=== PATIENT | female | born 1985 | race Caucasian/White ===

== ENCOUNTER 2019-02-17 15:35 | Inpatient (IN) | payer OTHER ==
--- NOTE | 2019-02-17 20:26 | CONSULT ---
Past Medical History, Laborist - Admission Chief Complaint: Contractions, poss. early labor, History of Present Illness: Term gestation; 39 w 1d. CELSO - 02.23.2019. GBS - neg. Wlking. FH reactive. Some ctx. Was 3 cm. in the office yesterday. 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 Weeks Gestation by Dates: 39.3 ...EDC by Dates: 02/21/19 ...EDC by Sono: 02/23/19 Heme/Onc: Denies/None Infectious Disease: Denies/None Psych: Denies/None Musculoskeletal: Denies/None Rheumatology: Denies/None ENT: Denies/None Endocrine: Denies/None Dermatology: Denies/None - Past Surgical History Past Surgical History: Yes: None Review of Systems - Review of Systems Constitutional: reports: No Symptoms Eyes: reports: No Symptoms HENT: reports: No Symptoms Neck: reports: No Symptoms Cardiovascular: reports: No Symptoms Respiratory: reports: No Symptoms Gastrointestinal: reports: No Symptoms Genitourinary: reports: No Symptoms Breasts: reports: No Symptoms Reported Musculoskeletal: reports: No Symptoms Integumentary: reports: No Symptoms Neurological: reports: No Symptoms Endocrine: reports: No Symptoms Hematology/Lymphatic: reports: No Symptoms Psychiatric: reports: No Symptoms Physical Exam - Maternity Vital Signs: Vital Signs Temperature 97.7 F 02/17/19 16:25 Pulse Rate 84 02/17/19 16:25 Respiratory Rate 20 02/17/19 16:25 Blood Pressure 116/75 02/17/19 16:25 O2 Sat by Pulse Oximetry (%) Constitutional: Yes: Well Nourished, No Distress, Calm Eyes: Yes: WNL, Conjunctiva Clear, EOM Intact HENT: Yes: WNL, Atraumatic, Normocephalic Neck: Yes: WNL, Supple, Trachea Midline Cardiovascular: Yes: WNL, Regular Rate and Rhythm Breast(s): Yes: WNL - Abdominal Exam/OB Fundal Height: 38 (short stature) Number of Fetuses: Single Presentation: Vertex Contractions: Yes Regularity: Irregular Intensity: Mild Monitor Mode: External Heart Rate (range): 136 Heart Rate Location: [facility] Category: I Accelerations: Uniform Decelerations: None - Vaginal Exam/OB Vaginal Bleediing: No Speculum Exam: No Dilatation (cm): 3 Effacement (%): 50 Amniotic Membrane Status: Intact Presentation: Vertex/Position Station: -1 - Physical Exam Musculoskeletal: Yes: WNL Extremities: Yes: WNL Integumentary: Yes: WNL ...Motor Strength: WNL Psychiatric: Yes: WNL Problem List - Problems (1) with 39 completed weeks gestation Code(s): Z3A.39 - 39 WEEKS GESTATION OF (2) Irregular uterine contractions Code(s): O62.2 - OTHER UTERINE INERTIA Assessment/Plan Term gestatuin, second baby. Early labor. No significant cervical changes. FH reactive. NST - reactive. Observe, allow labor to develop. Considering augmentation, poss. AROM. All discussed with pt. and her SO.
[2019-02-17 22:01] VITALS: BMI 24.7
[2019-02-17 23:02] LABS: BASO % 0.9 % (0-2.0); EOS % 0.7 % (0-4.5); HEMATOCRIT 34.2 % (32.4-45.2); HEMOGLOBIN 11.2 GM/dL (10.7-15.3); LYMPH % 20.5 % (8-40); MCH 30.1 pg (25.7-33.7); MCHC 32.8 g/dl (32.0-36.0); MEAN CELL VOLUME 91.7 fl (80-96); MEAN PLT VOLUME 8.6 fl (7.5-11.1); NEUT % 72.9 % (42.8-82.8); PLATELET COUNT 279 K/MM3 (134-434); RBC 3.73 M/mm3 (3.60-5.2); RDW 15.1 % (11.6-15.6); WHITE BLOOD COUNT 12.7 K/mm3 (4.0-10.0)
[2019-02-17 23:28] LABS: BLOOD UREA NITROGEN 10.9 mg/dL (7-18); CALCIUM 8.9 mg/dL (8.5-10.1); CREATININE 0.8 mg/dL (0.55-1.3); POTASSIUM 3.9 mmol/L (3.5-5.1)
[2019-02-17] MEDS ORDERED: OXYTOCIN 30 UNITS in 0.9% NS 30 UNIT/500 ML INFUS.BAG IVPB ONE (23:56)
[2019-02-18] MEDS ORDERED: OXYTOCIN 30 UNITS in 0.9% NS 30 UNIT/500 ML INFUS.BAG IVPB SCH
[2019-02-18 00:40] LABS: INR 0.92 (0.83-1.09); PROTHROMBIN TIME (PATIENT) 10.9 SEC (9.7-13.0)
[2019-02-18 00:43] LABS: ACTIVATED PTT 29.6 SECONDS (25.2-36.5)
[2019-02-18] MEDS: DEXTROSE 5%-LACTATED RINGERS 1,000 ML IV SCH ×2 (07:30)
--- NOTE | 2019-02-18 08:38 | PN ---
Progress Note (short form) - Note Progress Note: cx 5 cm 80 vx -2 mi fhr cat 1, arom clear irregular contraction on pitocin
[2019-02-18] MEDS ORDERED: ELECTROLYTE-148 SOLN 1,000 ML IV SCH (08:45)
--- NOTE | 2019-02-18 08:47 | HP ---
Past Medical History - Primary Care Physician PCP:: Lars Soni - Admission Chief Complaint: 39 weeks, labor History of Present Illness: 33 yo f oo1 39 weeks,in labor , [facility] at [facility] care , cx 5 cm 80 vx -2 mi, fhr cat 1, GBS negative History Source: Patient Limitations to Obtaining History: No Limitations - Past Medical History ...: 2 ...Para: 1 ...Term: 1 ...: 0 ...Spon : 0 ...Induced : 0 ...Multiple Gestation: 0 ...LMP: 05/17/18 ... Weeks Gestation by Dates: 39.3 ...EDC by Dates: 02/21/19 ...EDC by Sono: 02/23/19 Infectious Disease: Yes: STD's (txed for chlamydia06/2018) - Past Surgical History Past Surgical History: Yes: None Hx Myomectomy: No Hx Transabdominal Cerclage: No - Smoking History Smoking history: Never smoked Have you smoked in the past 12 months: No - Alcohol/Substance Use Hx Alcohol Use: No History of Substance Use: reports: None - Social History Usual Living Arrangement: Yes: With Spouse History of Recent Travel: No Home Medications - Allergies Allergies/Adverse Reactions: Allergies Allergy/AdvReac Type Severity Reaction Status Date / Time No Known Allergies Allergy Verified 02/17/19 16:16 - Home Medications Home Medications: Ambulatory Orders Ferrous Sulfate [Iron] 325 mg PO DAILY 02/17/19 Vitamins (Sjr) - 1 tab PO DAILY 02/17/19 Review of Systems - Review of Systems Constitutional: reports: No Symptoms Eyes: reports: No Symptoms HENT: reports: No Symptoms Neck: reports: No Symptoms Cardiovascular: reports: No Symptoms Gastrointestinal: reports: No Symptoms Genitourinary: reports: No Symptoms Breasts: reports: No Symptoms Reported Musculoskeletal: reports: No Symptoms Integumentary: reports: No Symptoms Neurological: reports: No Symptoms Endocrine: reports: No Symptoms Hematology/Lymphatic: reports: No Symptoms Psychiatric: reports: No Symptoms Physical Exam - Maternity Vital Signs: Vital Signs Temperature 98.4 F 02/18/19 06:00 Pulse Rate 90 02/18/19 08:00 Respiratory Rate 20 02/18/19 08:00 Blood Pressure 122/53 L 02/18/19 08:00 O2 Sat by Pulse Oximetry (%) Constitutional: Yes: Well Nourished, No Distress, Calm Eyes: Yes: WNL, Conjunctiva Clear, EOM Intact HENT: Yes: WNL, Atraumatic, Normocephalic Neck: Yes: WNL, Supple, Trachea Midline Cardiovascular: Yes: WNL, Regular Rate and Rhythm Breast(s): Yes: WNL - Abdominal Exam/OB Fundal Height: 38 Number of Fetuses: Single Presentation: Vertex Contractions: Yes Regularity: Irregular Intensity: Mod/Strong Monitor Mode: External Heart Rate Location: [facility] Category: I Accelerations: Non-Uniform Decelerations: None - Vaginal Exam/OB Vaginal Bleediing: No Speculum Exam: No Dilatation (cm): 5 cm Effacement (%): 80 Amniotic Membrane Status: Intact Presentation: Vertex/Position Station: -2 - Physical Exam Musculoskeletal: Yes: WNL Extremities: Yes: WNL Edema: Yes Edema: LLE: Trace, RLE: Trace Deep Tendon Reflex Grade: Normal +2 ...Motor Strength: WNL Psychiatric: Yes: WNL - Labs Lab Results: CBC, BMP 02/17/19 22:30 02/17/19 22:30 Hemorrhage Risk Assessment - Risk Factors Medium Risk Factors: Yes: None High Risk Factors: Yes: None Risk Score: 1 Risk Level: Medium Risk Problem List - Problems (1) with 39 completed weeks gestation Code(s): Z3A.39 - 39 WEEKS GESTATION OF (2) with 39 completed weeks gestation Code(s): Z3A.39 - 39 WEEKS GESTATION OF (3) Labor established Code(s): EMZ6027 - Assessment/Plan admiy in labor anticipate vaginal delivery FHM pain management
[2019-02-18] MEDS ORDERED: FENTANYL/BUPIVACAINE/NS/PF - PCEA - 50 ML DISP.SYRIN EP ONE (08:50)
[2019-02-18] MEDS ORDERED: NALOXONE HCL 0.4 MG/ML VIAL IVPUSH PRN (09:36)
[2019-02-18] MEDS ORDERED: FENTANYL/BUPIVACAINE/NS/PF - PCEA - 50 ML DISP.SYRIN EP SCH (09:45)
[2019-02-18] MEDS ORDERED: LIDOCAINE HCL 1% PRESERVATIVE FREE - 30ML VIAL ONE (09:53)
[2019-02-18] MEDS ORDERED: OXYTOCIN 20 UNITS in 0.9% NS 20 UNIT/1,000 ML INFUS.BAG IV ONE ×2 (09:53→11:44)
[2019-02-18] MEDS: D5W-LR W/ 20 UNITS OXYTOCIN 20 UNIT/1,000 ML INFUS.BAG IV SCH ×2 (10:07→12:00)
[2019-02-18] MEDS ORDERED: BENZOCAINE 28 GM HEMORRHOIDAL OINTMENT TP PRN (10:32)
[2019-02-18] MEDS ORDERED: WITCH HAZEL 50% (TUCKS) 40 PAD/JAR PAD TP PRN (10:32)
[2019-02-18] MEDS ORDERED: BENZOCAINE 20% 57 GM BOTTLE TP PRN (10:32)
[2019-02-18] MEDS ORDERED: METHYLERGONOVINE MALEATE 0.2 MG/1 ML AMP IM PRN (10:32)
[2019-02-18] MEDS ORDERED: BISACODYL 10 MG SUPP.RECT RC PRN (10:32)
[2019-02-18] MEDS ORDERED: METHYLERGONOVINE MALEATE 0.2 MG/1 ML AMP IM ONE (10:33)
[2019-02-18] MEDS: ACETAMINOPHEN 325 MG TABLET (FP) PO PRN ×2 (10:40→19:50)
[2019-02-18] MEDS: IBUPROFEN 600 MG TABLET (FP) PO PRN ×2 (10:40→19:51)
--- NOTE | 2019-02-18 11:05 | PN ---
Delivery - Delivery Vaginal Delivery: Spontaneous Type of Anesthesia: Local, Epidural Episiotomy/Laceration: 1st degree (cx full , head delivered . nasopharynx suction , ant. and post shoulder with no difficulty, live baby boy, 8/9 , placenta complete , ebl 400 cc , methergine given im 1 dose for uterine atony) Delivery, Single - [place] Feeding Plan Initial Plan: Elected not to breastfeed exclusively throughout hospitalization
[2019-02-18] MEDS: FERROUS SO4 325 MG TABLET (FP) PO SCH (21:59)
[2019-02-19] MEDS: ACETAMINOPHEN 325 MG TABLET (FP) PO PRN ×3 (00:38→17:32)
[2019-02-19] MEDS: IBUPROFEN 600 MG TABLET (FP) PO PRN ×3 (00:38→17:33)
[2019-02-19 08:06] LABS: BASO % 0.3 % (0-2.0); EOS % 0.6 % (0-4.5); HEMATOCRIT 28.2 % (32.4-45.2); HEMOGLOBIN 9.2 GM/dL (10.7-15.3); LYMPH % 17.7 % (8-40); MCH 30.2 pg (25.7-33.7); MCHC 32.7 g/dl (32.0-36.0); MEAN CELL VOLUME 92.3 fl (80-96); MEAN PLT VOLUME 8.4 fl (7.5-11.1); MONO % 6.5 % (3.8-10.2); NEUT % 74.9 % (42.8-82.8); PLATELET COUNT 225 K/MM3 (134-434); RBC 3.06 M/mm3 (3.60-5.2); RDW 15.2 % (11.6-15.6); WHITE BLOOD COUNT 13.1 K/mm3 (4.0-10.0)
--- NOTE | 2019-02-19 08:32 | PN ---
Progress Note (short form) - Note Progress Note: ppd 1 doing well, no c/o CBC, BMP 02/19/19 07:35 02/17/19 22:30 Last Vital Signs Temp Pulse Resp BP Pulse Ox 98.7 F 78 18 112/70 100 02/18/19 21:00 02/19/19 06:00 02/19/19 06:00 02/19/19 06:00 02/18/19 11:24 abdomen soft, uterus firm, non tender no calf tenderness lochia mild plan ambulate , d/c home in am Problem List - Problems (1) with 39 completed weeks gestation Code(s): Z3A.39 - 39 WEEKS GESTATION OF (2) with 39 completed weeks gestation Code(s): Z3A.39 - 39 WEEKS GESTATION OF (3) Labor established Code(s): [id number] -
[2019-02-19] MEDS: PRENATAL VITAMINS W/ FOLIC ACID TABLET (FP) PO SCH (09:31)
[2019-02-19] MEDS: FERROUS SO4 325 MG TABLET (FP) PO SCH ×2 (09:31→22:28)
[2019-02-19] MEDS ORDERED: SENNOSIDES/DOCUSATE COMBO (SENNA PLUS) TABLET (UD) PO PRN (22:00)
[2019-02-19 22:34] VITALS: TEMP 98.5
--- NOTE | 2019-02-20 04:32 | DS ---
Physical Examination Vital Signs: Vital Signs Temperature 98.5 F 02/19/19 22:33 Pulse Rate 91 H 02/19/19 22:33 Respiratory Rate 20 02/19/19 22:33 Blood Pressure 116/68 02/19/19 22:33 O2 Sat by Pulse Oximetry (%) 100 02/18/19 11:24 Findings/Remarks: Ambulating, tolerating PO, lochia decreased, voiding Constitutional: Yes: Well Nourished HENT: Yes: Atraumatic Neck: Yes: Supple Cardiovascular: Yes: Regular Rate and Rhythm Respiratory: Yes: Regular Gastrointestinal: Yes: Normal Bowel Sounds, Soft ...Rectal Exam: Yes: Deferred Breast(s): Yes: Other (deferred) Musculoskeletal: Yes: WNL Extremities: Yes: WNL Edema: Yes Edema: LLE: Trace, RLE: Trace Integumentary: Yes: WNL Wound/Incision: Yes: Well Approximated Neurological: Yes: Alert, Oriented ...Motor Strength: WNL Psychiatric: Yes: Alert, Oriented Labs: CBC, BMP 02/19/19 07:35 02/17/19 22:30 Discharge Summary Problems reviewed: Yes Reason For Visit: delivery Current Active Problems Irregular uterine contractions (Acute) Labor established (Acute) with 39 completed weeks gestation (Acute) with 39 completed weeks gestation (Acute) Procedures: Principal: Vaginal delivery Hospital Course: Normal vaginal delivery and uncomplicated recovery Plan of Treatment: as described Condition: Stable - Instructions Diet, Activity, Other Instructions: Return to regular activity as tolerated. Follow up in 6-8 weeks for visit. Call MD with any questions or concerns Referrals: Collin Dickinson MD [Staff Physician] - Disposition: HOME - Home Medications Comprehensive Discharge Medication List: Ambulatory Orders Ferrous Sulfate [Iron] 325 mg PO DAILY 02/17/19 Vitamins (Sjr) - 1 tab PO DAILY 02/17/19 Acetaminophen [Tylenol] 325 mg PO Q6H PRN #20 capsule MDD 5 02/20/19 Ibuprofen 600 mg PO Q6H PRN #20 tablet 02/20/19
[2019-02-20] MEDS: PRENATAL VITAMINS W/ FOLIC ACID TABLET (FP) PO SCH (09:15)
[2019-02-20] MEDS: FERROUS SO4 325 MG TABLET (FP) PO SCH (09:15)
[2019-02-20] MEDS: IBUPROFEN 600 MG TABLET (FP) PO PRN (09:15)
[2019-02-20] MEDS: ACETAMINOPHEN 325 MG TABLET (FP) PO PRN (09:16)
[2019-02-20 09:22] VITALS: BP 106/62; PULSE 100
== END 2019-02-20 12:30 | disposition home or self-care (01) | DRG 560 ==
LOC: JDEL 15:35 → JLDR 20:10 → J3W 02-18 13:55
PROVIDERS: ADMIT Obstetrics & Gynecology; ATTEND Obstetrics & Gynecology
PROC: 10E0XZZ Delivery of Products of Conception, External Approach (ICD-10-PCS; principal; 2019-02-18)
PROC: 0HQ9XZZ Repair Perineum Skin, External Approach (ICD-10-PCS; 2019-02-18)
DX: O62.2 Other uterine inertia (principal); O70.0 First degree perineal laceration during delivery; Z3A.39 39 weeks gestation of pregnancy; Z37.0 Single live birth
CPT/HCPCS: 36415; 59409; 80048; 85025; 85610; 85730; 86593; 86850; 86900; 86901